=== PATIENT | male | born 1955 | race Caucasian/White ===

== ENCOUNTER 2018-06-01 11:41 | Emergency (ER) | payer BC, MEDICARE ==
[2018-06-01 11:50] VITALS: PULSE 55; RESP 18
--- NOTE | 2018-06-01 12:32 | ED ---
General Adult HPI - General Chief complaint: Recheck/Abnormal Lab/Rx Stated complaint: Post Surgical Complication Time Seen by Provider: 06/01/18 12:07 Source: patient Mode of arrival: ambulatory Limitations: no limitations - Related Data Home Medications Medication Instructions Recorded Confirmed Cholecalciferol [Vitamin D3] 1,000 unit PO DAILY 05/02/15 06/01/18 Citalopram Hydrobromide [CeleXA] 10 mg PO DAILY 05/02/15 06/01/18 Lisinopril [Zestril] 20 mg PO DAILY 05/02/15 06/01/18 Aspirin EC [Ecotrin Low Dose] 81 mg PO HS 06/01/18 06/01/18 Cyanocobalamin (Vitamin B-12) 1,000 mcg PO DAILY 06/01/18 06/01/18 [Vitamin B-12] Insulin Aspart [NovoLOG 20 unit SQ AC-TID 06/01/18 06/01/18 (formulary)] Insulin Aspart [NovoLOG See Protocol SQ AC-TID 06/01/18 06/01/18 (formulary)] Insulin Glargine,Hum.rec.anlog 54 units SQ HS 06/01/18 06/01/18 [Toujeo Solostar] Krill/Barnum-3/Dha/Epa/Lipids 1 cap PO DAILY 06/01/18 06/01/18 [Krill Oil 350 mg Softgel] Primidone [Mysoline] 25 mg PO BID 06/01/18 06/01/18 Previous Rx's Medication Instructions Recorded Atorvastatin Calcium [Lipitor] 10 mg PO DAILY #30 tab 05/07/15 Clopidogrel [Plavix] 75 mg PO DAILY #30 tab 05/07/15 Allergies Allergy/AdvReac Type Severity Reaction Status Date / Time cefepime Allergy Rash/Hives Verified 06/01/18 12:16 POLYGLYCOL Allergy Rash/Hives Uncoded 05/02/15 20:02 Review of Systems ROS Statement: Those systems with pertinent positive or pertinent negative responses have been documented in the HPI. ROS Other: All systems not noted in ROS Statement are negative. 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 History of Any Multi-Drug Resistant Organisms: MRSA Date of last positivie culture/infection: 2013 MDRO Source:: LEFT FOOT Past Surgical History: Pacemaker Additional Past Surgical History / Comment(s): LEFT FOOT reconstruction, colonoscopy Past Anesthesia/Blood Transfusion Reactions: No Reported Reaction Past Psychological History: Depression Smoking Status: Never smoker Past Alcohol Use History: Rare Past Drug Use History: None Reported - Past Family History Father Family Medical History: Hypertension, Myocardial Infarction ([place]) Mother Family Medical History: Cancer, Myocardial Infarction ([place]) Additional Family Medical History / Comment(s): Breast CA, MRSA Sister(s) Additional Family Medical History / Comment(s): heart valve transplant General Exam Limitations: no limitations Course Vital Signs 06/01/18 11:47 Temperature 98.0 F Pulse Rate 55 L Respiratory 18 Rate Blood Pressure 135/74 O2 Sat by Pulse 95 Oximetry Medical Decision Making - Medical Decision Making Dictation was produced using [employer] dictation software. please excuse any grammatical, word or spelling errors. Chief Complaint: 63-year-old male with recent pacemaker placement presents with bleeding from surgical site. History of Present Illness: Patient 63-year-old male presents with bleeding from the surgical site. Patient states that patient was placed [address] Branch. Patient states that after the procedure he was told that there was a difficult time placing the pacemaker. He had a large hematoma postoperatively that they're watching. Patient was seen by curriculum development specialist who placed the pacemaker therefore days ago who recommended just watching the wound. This morning patient awoke and there was a small bleeding coming from the inferior portion of the wound. Other complaints at this time. It has any worsening pain. No constitutional symptoms. The ROS documented in this emergency department record has been reviewed and confirmed by me. Those systems with pertinent positive or negative responses have been documented in the HPI. All other systems are other negative and/or noncontributory. PHYSICAL EXAM: General Impression: Alert and oriented x3, not in acute distress HEENT: Normocephalic atraumatic, extra-ocular movements intact, pupils equal and reactive to light bilaterally, mucous membranes moist. Cardiovascular: Heart regular rate and rhythm, S1&S2 audible, no murmurs, rubs or gallops Chest: Lungs clear to auscultation bilaterally, no rhonchi, no wheeze, no rales Abdomen: Bowel sounds present, abdomen soft, non-tender, non-distended, no organomegaly, small ecchymoses and hematoma over the left upper chest region overlying the pacemaker site. Punctate area of dark blood from the inferior portion of the wound but the size of a lead pencil tip Musculoskeletal: Pulses present and equal in all extremities, no peripheral edema Motor: Power 5/5 bilaterally, no focal deficits noted Neurological: CN II-XII grossly intact, no focal motor or sensory deficits noted Skin: Intact with no visualized rashes Psych: Normal affect and mood ED course: 63-year-old male status post pacemaker presents with mild bleeding from the inferior portion of the surgical site. It appears that the bleeding is from placed previous blood clot. Rest physical examination is benign. There is small punctate area of oozing dark blood. No signs of infection. Discussed patient case with Dr. Wang who recommends placing dressing and following up with Dr. Branch on . She understandable and agreeable to plan. Once I was cleaned and dressing was placed. Patient given small amount of dressing for dressing changes. Told to come back with any constitutional symptoms, worsening pain or bright red blood. Disposition Clinical Impression: Bleeding Disposition: HOME SELF-CARE Condition: Good Instructions: Postoperative Bleeding (ED) Additional Instructions: Follow up with Dr. Branch on Is patient prescribed a controlled substance at d/c from ED?: No Referrals: Sean Sharif MD [Primary Care Provider] - 1-2 days Time of Disposition: 12:31
[2018-06-01 12:50] VITALS: BP 132/82; TEMP 98.2
== END 2018-06-01 12:49 | disposition home or self-care (01) ==
LOC: EC 11:41
DX: I97.618 Postprocedural hemorrhage of a circulatory system organ or structure following other circulatory system procedure (principal); E11.9 Type 2 diabetes mellitus without complications; I10 Essential (primary) hypertension; F32.9 Major depressive disorder, single episode, unspecified; Z79.82 Long term (current) use of aspirin; Z79.4 Long term (current) use of insulin; Z79.899 Other long term (current) drug therapy; Z86.73 Personal history of transient ischemic attack (TIA), and cerebral infarction without residual deficits; Z95.0 Presence of cardiac pacemaker; Z88.1 Allergy status to other antibiotic agents; Z88.8 Allergy status to other drugs, medicaments and biological substances
CPT/HCPCS: 99283

== ENCOUNTER 2019-02-23 07:31 | Day surgery (SDC) | payer MEDICARE ==
[2019-02-21 13:13] VITALS: BMI 33.7
[~2019-02-23 07:31] MED LIST: LACTATED RINGERS 1,000 ML IV SCH
[2019-02-23 07:51] VITALS: TEMP 98.2
[2019-02-23 07:53] LABS: Glucose,Whole Blood 148 mg/dL (75-99)
[2019-02-23] MEDS ORDERED: MIDAZOLAM 2 MG/2 ML VIAL ONE (08:08)
[2019-02-23] MEDS ORDERED: LIDOCAINE 1% INJ 10MG/ML (20 ML MDV) ONE (08:08)
[2019-02-23] MEDS ORDERED: PROPOFOL 10 MG/ML 20 ML VIAL IV ONE (08:08)
[2019-02-23] MEDS ORDERED: fentaNYL (PF) 50 MCG/ML 2 ML AMP ONE (08:08)
--- NOTE | 2019-02-23 08:11 | P.GSHP ---
History of Present Illness H&P Date: 02/23/19 CHIEF COMPLAINT: GERD and colon screen HISTORY OF PRESENT ILLNESS: The patient is a 64-year-old male who presents with gastroesophageal reflux disease and need for colon screen. Upper and lower endoscopy were offered for further evaluation and management. PAST MEDICAL HISTORY: Please see list. PAST SURGICAL HISTORY: Please see list. MEDICATIONS: Please see list. ALLERGIES: Please see list. SOCIAL HISTORY: No illicit drug use FAMILY HISTORY: No reports of Crohn disease or ulcerative colitis. REVIEW OF ORGAN SYSTEMS: CONSTITUTIONAL: No reports of fevers or chills. GI: Denies any blood in stools or constipation. PHYSICAL EXAM: VITAL SIGNS: Stable GENERAL: Well-developed pleasant in no acute distress. HEENT: No scleral icterus. Extraocular movements grossly intact. Moist buccal mucosa. NECK: Supple without lymphadenopathy. CHEST: Unlabored respirations. Equal bilateral excursions. CARDIOVASCULAR: Regular rate and rhythm. Distal 2+ pulses. ABDOMEN: Soft, nondistended. MUSCULOSKELETAL: No clubbing, cyanosis, or edema. ASSESSMENT: 1. Gastroesophageal reflux disease 2. Colon screen. PLAN: 1. 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 Multiple TIAs from 7868-3986, pt states have about 13 TIAs have occured in that time. Tremors of head. Pacemaker. Loop Recorder Monitor. Some dysphagia for few years. Uses CPAP. History of Any Multi-Drug Resistant Organisms: MRSA Date of last positivie culture/infection: 2013 MDRO Source:: LEFT FOOT Past Surgical History: Pacemaker Additional Past Surgical History / Comment(s): LEFT FOOT Reconstruction, Colonoscopy. Exc CA eyelid. Loop Recorder. Past Anesthesia/Blood Transfusion Reactions: No Reported Reaction Type of Cardiac Device: Permanent Pacemaker Device Placement Date:: 05/2018 Smoking Status: Never smoker - Past Family History Father Family Medical History: Hypertension, Myocardial Infarction ([place]) Mother Family Medical History: Cancer, Myocardial Infarction ([place]) Additional Family Medical History / Comment(s): Breast CA, MRSA Sister(s) Additional Family Medical History / Comment(s): heart valve transplant Medications and Allergies Home Medications Medication Instructions Recorded Confirmed Type Cholecalciferol [Vitamin D3 (25 1,000 unit PO DAILY 05/02/15 02/23/19 History Mcg = 1000 Iu)] Citalopram Hydrobromide [CeleXA] 10 mg PO DAILY 05/02/15 02/23/19 History Lisinopril [Zestril] 20 mg PO DAILY 05/02/15 02/23/19 History Clopidogrel [Plavix] 75 mg PO DAILY #30 tab 05/07/15 02/23/19 Rx Cyanocobalamin (Vitamin B-12) 1,000 mcg PO DAILY 06/01/18 02/23/19 History [Vitamin B-12] INSULIN ASPART (NovoLOG) [NovoLOG 30 unit SQ AC-TID 06/01/18 02/23/19 History (formulary)] Primidone [Mysoline] 50 mg PO DAILY 06/01/18 02/23/19 History Atorvastatin Calcium [Lipitor] 40 mg PO DAILY 02/21/19 02/23/19 History Insulin Glargine,Hum.rec.anlog 45 unit SQ HS 02/21/19 02/23/19 History [Toujeo Solostar] metFORMIN HCL [Glucophage] 1,000 mg PO BID 02/21/19 02/23/19 History Allergies Allergy/AdvReac Type Severity Reaction Status Date / Time cefepime Allergy Rash/Hives Verified 02/21/19 12:49 POLYGLYCOL Allergy Rash/Hives Uncoded 02/21/19 12:49 Surgical - Exam Vital Signs Temp Pulse Resp BP Pulse Ox 98.2 F 86 18 143/86 94 L 02/23/19 07:45 02/23/19 07:45 02/23/19 07:45 02/23/19 07:45 02/23/19 07:45 Results - Labs Abnormal Lab Results - Last 24 Hours (Table) 02/23/19 Range/Units 07:49 POC Glucose (mg/dL) 148 H (75-99) mg/dL
--- NOTE | 2019-02-23 08:20 | P.PCN ---
Date of Procedure: 02/23/19 Description of Procedure: PREOPERATIVE DIAGNOSIS: Gastroesophageal reflux disease. POSTOPERATIVE DIAGNOSIS: Gastritis. Gastroesophageal reflux disease. Diaphragmatic hiatal hernia OPERATION: Esophagogastroduodenoscopy with biopsies along antrum. SURGEON: Amy Tineo MD ANESTHESIA: MAC. INDICATIONS: The patient is a 64-year-old male who presents with a history of reflux disease. Benefits and risks of the procedure were described. Informed consent was obtained. DESCRIPTION: The patient was brought into the endoscopy suite and laid in the left lateral decubitus position. An Olympus gastroscope was passed along the posterior oropharynx down to the distal esophagus where the squamocolumnar junction was encountered at 40 cm from the incisors. The stomach was entered and no bile reflux was found. Additional findings are listed below. Biopsies with cold forceps were obtained of the antrum. The first through third portion of the duodenum was examined and unremarkable. Retroflexion of the scope confirmed Hill grade 2 lower esophageal valve. The squamocolumnar junction demonstrated LA grade B erosive esophagitis. The stomach was desufflated. The patient tolerated the procedure well. FINDINGS: Squamocolumnar junction 40 cm from the incisors. Diaphragmatic hiatus at 41 cm. Hiatal hernia, 1 cm Hill grade 2 lower esophageal valve. LA grade B erosive esophagitis. No active duodenitis. Chronic gastritis RECOMMENDATIONS: Upper endoscopy as needed.
--- NOTE | 2019-02-23 08:37 | P.PCN ---
Date of Procedure: 02/23/19 Description of Procedure: PREOPERATIVE DIAGNOSIS: History of polyps Colonoscopy screening POSTOPERATIVE DIAGNOSIS: Colonoscopy screening Personal history of colon polyps. Multiple tubular adenomas throughout the colon. External hemorrhoids, grade 2 Internal hemorrhoids, grade 2 Anal fissure Diverticulosis. OPERATION: Colonoscopy to the ileocecal valve and appendiceal orifice. Colonoscopy with multiple hot snare polypectomies Colonoscopy with cold forceps biopsy. SURGEON: Amy Tineo MD. ANESTHESIA: MAC. INDICATIONS: The patient is a 64-year-old male who presents for colonoscopy screening. Last colonoscopy 5 years ago Benefits and risks were described and informed consent was obtained. DESCRIPTION OF PROCEDURE: The patient had undergone Suprep. He had been brought into the operating room and laid in the left lateral decubitus position. After adequate intravenous sedation, the rectum was examined with 2% lidocaine jelly. The prostate was unremarkable External hemorrhoids were encountered. The rectal tone was within normal limits. No lesions were palpated in the rectal vault. An Olympus colonoscope was advanced until the ileocecal valve and appendiceal orifice were clearly viewed. The prep was excellent. The scope was removed with visualization of each mucosal fold. Scattered diverticulosis was encountered. Multiple colonic polyps were found and cold forcep biopsy or snare polypectomy. No evidence of focal colitis was found. Retroflexion of the scope demonstrated grade 1 internal hemorrhoids without active bleeding or inflammation. Anal fissure identified. The colon was desufflated. The patient had tolerated the procedure well. Withdrawal time was over 6 minutes. FINDINGS: Aronchick preparation quality scale 1(1-5) Internal hemorrhoids, grade 2 External hemorrhoids, grade 2. No arteriovenous malformations. Scattered sigmoid diverticulosis Anal fissure Removal of 3 polyps: - Snare polypectomy 5 mm flat villous adenoma polyp, hepatic flexure - Snare polypectomy 6 mm flat villous adenoma polyp, ileocecal valve - Cold forceps biopsy at 20 cm from the anal verge, 4 mm polyp. No focal colitis. RECOMMENDATIONS: Given severity of tubular adenomas, recommend repeat colonoscopy 3 year, 2021 Plan - Discharge Summary Discharge Rx Participant: No New Discharge Prescriptions: New Omeprazole 40 mg PO DAILY #14 capsule.dr Pugh Action Lisinopril [Zestril] 20 mg PO DAILY Citalopram Hydrobromide [CeleXA] 10 mg PO DAILY Cholecalciferol [Vitamin D3 (25 Mcg = 1000 Iu)] 1,000 unit PO DAILY Clopidogrel [Plavix] 75 mg PO DAILY #30 tab INSULIN ASPART (NovoLOG) [NovoLOG (formulary)] 30 unit SQ AC-TID Cyanocobalamin (Vitamin B-12) [Vitamin B-12] 1,000 mcg PO DAILY Primidone [Mysoline] 50 mg PO DAILY Atorvastatin Calcium [Lipitor] 40 mg PO DAILY metFORMIN HCL [Glucophage] 1,000 mg PO BID Insulin Glargine,Hum.rec.anlog [[facility]] 45 unit SQ HS Discharge Medication List Cholecalciferol [Vitamin D3 (25 Mcg = 1000 Iu)] 1,000 unit PO DAILY 05/02/15 [History] Citalopram Hydrobromide [CeleXA] 10 mg PO DAILY 05/02/15 [History] Lisinopril [Zestril] 20 mg PO DAILY 05/02/15 [History] Clopidogrel [Plavix] 75 mg PO DAILY #30 tab 05/07/15 [Rx] Cyanocobalamin (Vitamin B-12) [Vitamin B-12] 1,000 mcg PO DAILY 06/01/18 [History] INSULIN ASPART (NovoLOG) [NovoLOG (formulary)] 30 unit SQ AC-TID 06/01/18 [History] Primidone [Mysoline] 50 mg PO DAILY 06/01/18 [History] Atorvastatin Calcium [Lipitor] 40 mg PO DAILY 02/21/19 [History] Insulin Glargine,Hum.rec.anlog [[facility]] 45 unit SQ HS 02/21/19 [History ] metFORMIN HCL [Glucophage] 1,000 mg PO BID 02/21/19 [History] Omeprazole 40 mg PO DAILY #14 capsule. 02/23/19 [Rx] Follow up Appointment(s)/Referral(s): Amy Tineo MD [STAFF PHYSICIAN] - 03/08/19 Patient Instructions/Handouts: Colorectal Polyps (GEN), Diverticulosis Diet (GEN), Diverticulosis (DC), Hemorrhoids (DC), Anal Fissure (DC) Activity/Diet/Wound Care/Special Instructions: Repeat colonoscopy 3 years, 2021 Discharge Disposition: HOME SELF-CARE
[2019-02-23 08:39] VITALS: PULSE 55
[2019-02-23 08:54] VITALS: BP 128/79; RESP 16
== END 2019-02-23 09:22 | disposition home or self-care (01) ==
LOC: ORWHC2ENDO 07:31
PROVIDERS: ATTEND Surgery Plastic and Reconstructive Surgery
DX: Z12.11 Encounter for screening for malignant neoplasm of colon (principal); K21.0 Gastro-esophageal reflux disease with esophagitis; D12.3 Benign neoplasm of transverse colon; D12.0 Benign neoplasm of cecum; D12.5 Benign neoplasm of sigmoid colon; K29.50 Unspecified chronic gastritis without bleeding; K44.9 Diaphragmatic hernia without obstruction or gangrene; K64.1 Second degree hemorrhoids; K64.0 First degree hemorrhoids; K64.4 Residual hemorrhoidal skin tags; K60.2 Anal fissure, unspecified; I10 Essential (primary) hypertension; E11.65 Type 2 diabetes mellitus with hyperglycemia; K57.30 Diverticulosis of large intestine without perforation or abscess without bleeding; Z79.02 Long term (current) use of antithrombotics/antiplatelets; Z79.4 Long term (current) use of insulin; Z79.899 Other long term (current) drug therapy; Z86.73 Personal history of transient ischemic attack (TIA), and cerebral infarction without residual deficits; Z85.828 Personal history of other malignant neoplasm of skin; Z95.0 Presence of cardiac pacemaker; Z86.14 Personal history of Methicillin resistant Staphylococcus aureus infection; Z98.890 Other specified postprocedural states; Z80.3 Family history of malignant neoplasm of breast; Z88.1 Allergy status to other antibiotic agents; Z88.8 Allergy status to other drugs, medicaments and biological substances; Z95.818 Presence of other cardiac implants and grafts
CPT/HCPCS: 88305; 45380; 45385; 43239; J2250; J2001; J3010; J2704

== ENCOUNTER → 2019-11-15 | Outpatient (CLI) | payer MEDICARE ==
--- NOTE | 2019-11-15 11:54 | XR ---
EXAMINATION TYPE: XR foot complete LT DATE OF EXAM: 11/15/2019 COMPARISON: 03/02/2012 HISTORY: Pain TECHNIQUE: Three views are submitted. FINDINGS: The bony structures are demineralized. Evaluation of the distal toes is limited by the patient's inab ility to straighten the toes during film exposure. Multiple metallic screws noted at the talocalcanea l joint. There is total obliteration of the joint space between the talus and calcaneus. No acute fra cture or dislocation is seen. No abnormal periosteal reaction is noted. Tarsometatarsal joints are pr eserved. Arthropathy of the first MTP. Distal phalanges are difficult to assess due to positioning. C hronic deformity along the plantar surface of the calcaneus with hypertrophic changes noted. Soft tis rodger calcification in the region of the Achilles again noted. Pes planus deformity noted. IMPRESSION: 1. Postsurgical change with diffuse osteopenia and arthropathy. No erosive changes..
== END | disposition home or self-care (01) ==
LOC: RADXRMAIN 10:38
PROVIDERS: ATTEND Family Medicine
DX: M85.872 Other specified disorders of bone density and structure, left ankle and foot (principal); M12.872 Other specific arthropathies, not elsewhere classified, left ankle and foot; Z98.890 Other specified postprocedural states

== ENCOUNTER 2022-01-01 09:56 | Observation (INO) | payer MEDICARE ==
[2022-01-01 10:18] LABS: Glucose,Whole Blood 197 mg/dL (70-110)
--- NOTE | 2022-01-01 10:20 | ED ---
Neuro HPI - General Source: patient Mode of arrival: wheelchair Limitations: no limitations - History of Present Illness Is the patient presenting with stroke symptoms?: Yes Last Known Well Date: 12/31/21 Last Known Well Time: 12:00 <Aubrey Guadalupe - Last Filed: 01/01/22 13:52> <Bimal Echevarria - Last Filed: 01/01/22 14:08> - General Chief Complaint: Neuro Symptoms/Deficit Stated Complaint: slurred speech Time Seen by Provider: 01/01/22 10:04 - History of Present Illness Initial Comments: Patient is a 66-year-old male presenting with chief complaint of slurred speech. Patient states that symptoms began about noon yesterday. Patient also admits to some difficulty with right hand coordination and difficulty swallowing. Patient has self diagnosed TIAs in the past. He has a history of Parkinson's, diabetes, hypertension. He denies any headache, nausea, vomiting, chest pain, shortness of breath, fever, chills, vision or hearing changes, neck pain or stiffness, recent trauma, numbness, tingling, palpitations, dysuria, hematuria, diarrhea, hematochezia, melena, URI-like symptoms. (Aubrey Guadalupe) - Related Data Home Medications: Home Medications Medication Instructions Recorded Confirmed Citalopram Hydrobromide [CeleXA] 10 mg PO DAILY 05/02/15 01/01/22 Cyanocobalamin (Vitamin B-12) 1,000 mcg PO DAILY 06/01/18 01/01/22 [Vitamin B-12] Atorvastatin Calcium [Lipitor] 40 mg PO DAILY 02/21/19 01/01/22 Insulin Glargine,Hum.rec.anlog 54 unit SQ HS 02/21/19 01/01/22 [Toujeo Solostar] metFORMIN HCL [Glucophage] 1,000 mg PO BID 02/21/19 01/01/22 Cholecalciferol [Vitamin D3 (25 25 mcg PO DAILY 01/01/22 01/01/22 Mcg = 1000 Iu)] Insulin Aspart [NovoLOG Flexpen] 30 units SQ AC-TID 01/01/22 01/01/22 Insulin Aspart [NovoLOG Flexpen] See Protocol SQ AC-TID 01/01/22 01/01/22 Metoprolol Tartrate [Lopressor] 50 mg PO DAILY 01/01/22 01/01/22 Pioglitazone [Actos] 15 mg PO DAILY 01/01/22 01/01/22 lisinopriL 40 mg PO DAILY 01/01/22 01/01/22 Previous Rx's Medication Instructions Recorded Clopidogrel [Plavix] 75 mg PO DAILY #30 tab 05/07/15 Allergies/Adverse Reactions: Allergies Allergy/AdvReac Type Severity Reaction Status Date / Time cefepime Allergy Rash/Hives Verified 01/01/22 10:02 POLYGLYCOL Allergy Rash/Hives Uncoded 01/01/22 10:02 Review of Systems ROS Other: All systems not noted in ROS Statement are negative. <Aubrey Guadalupe - Last Filed: 01/01/22 13:52> ROS Other: All systems not noted in ROS Statement are negative. <Bimal Echevarria - Last Filed: 01/01/22 14:08> ROS Statement: Those systems with pertinent positive or pertinent negative responses have been documented in the HPI. General Exam Limitations: no limitations General appearance: alert, in no apparent distress Head exam: Present: atraumatic, normocephalic, normal inspection Eye exam: Present: normal appearance, PERRL, EOMI. Absent: scleral icterus, periorbital swelling Neck exam: Present: normal inspection Respiratory exam: Present: normal lung sounds bilaterally. Absent: respiratory distress, wheezes, rales, rhonchi, stridor Cardiovascular Exam: Present: regular rate, normal rhythm, normal heart sounds. Absent: systolic murmur, diastolic murmur, rubs, gallop, clicks Extremities exam: Present: normal inspection, full ROM Neurological exam: Present: alert, oriented X3, CN II-XII intact Expanded Patient oriented to: Present: person, place, time Speech: Present: expressive aphasia (slurred speech) Cranial nerves: EOM's Intact: Normal, Tongue Deviation: Normal, Facial Sensation: Normal Sensory exam: Upper Extremity Light Touch: Normal, Lower Extremity Light Touch: Normal Motor strength exam: RUE: 5, LUE: 5, RLE: 5, LLE: 5 Eye Response: (4) open spontaneously Motor Response: (6) obeys commands Verbal Response: (5) oriented (slurred speech) [place] Total: 15 Psychiatric exam: Present: normal affect, normal mood Skin exam: Present: warm, dry, intact, normal color. Absent: rash <Guadalupe,Malmaia - Last Filed: 01/01/22 13:52> Stroke MDM - Lab Data Result diagrams: 01/01/22 10:19 01/01/22 10:19 <Johnnie Guadalupemaia - Last Filed: 01/01/22 13:52> - Lab Data Result diagrams: 01/01/22 10:19 01/01/22 10:19 - EKG Data -: EKG Interpreted by [facility] EKG shows normal: sinus rhythm (Pacemaker rhythm of 49 FL interval 195 QRS duration 114 QT since QTC 444/416 left exodeviation poor R-wave progression) <Bimal Echevarria - Last Filed: 01/01/22 14:08> - Lab Data Lab Results 01/01/22 01/01/22 01/01/22 Range/Units 10:18 10:19 10:19 WBC 5.9 (3.8-10.6) k/uL RBC 5.14 (4.30-5.90) m/uL Hgb 16.3 (13.0-17.5) gm/dL Hct 47.8 (39.0-53.0) % MCV 93.0 (80.0-100.0) fL MCH 31.8 (25.0-35.0) pg MCHC 34.2 (31.0-37.0) g/dL RDW 13.3 (11.5-15.5) % Plt Count 210 (150-450) k/uL MPV 8.8 Neutrophils % 61 % Lymphocytes % 26 % Monocytes % 7 % Eosinophils % 3 % Basophils % 1 % Neutrophils # 3.6 (1.3-7.7) k/uL Lymphocytes # 1.5 (1.0-4.8) k/uL Monocytes # 0.4 (0-1.0) k/uL Eosinophils # 0.2 (0-0.7) k/uL Basophils # 0.0 (0-0.2) k/uL PT 11.2 (9.0-12.0) sec INR 1.0 (<1.2) APTT 28.3 (22.0-30.0) sec Sodium (137-145) mmol/L Potassium (3.5-5.1) mmol/L Chloride (98-107) mmol/L Carbon Dioxide (22-30) mmol/L Anion Gap mmol/L BUN (9-20) mg/dL Creatinine (0.66-1.25) mg/dL Est GFR (CKD-EPI)AfAm (>60 ml/min/1.73 sqM) Est GFR (CKD-EPI)NonAf (>60 ml/min/1.73 sqM) Glucose (74-99) mg/dL POC Glucose (mg/dL) 197 H (70-110) mg/dL POC Glu Active Directory Specialist ID Elma Spivey Calcium (8.4-10.2) mg/dL Total Bilirubin (0.2-1.3) mg/dL AST (17-59) U/L ALT (4-49) U/L Alkaline Phosphatase (38-126) U/L Troponin I (0.000-0.034) ng/mL Total Protein (6.3-8.2) g/dL Albumin (3.5-5.0) g/dL 01/01/22 01/01/22 Range/Units 10:19 10:19 WBC (3.8-10.6) k/uL RBC (4.30-5.90) m/uL Hgb (13.0-17.5) gm/dL Hct (39.0-53.0) % MCV (80.0-100.0) fL MCH (25.0-35.0) pg MCHC (31.0-37.0) g/dL RDW (11.5-15.5) % Plt Count (150-450) k/uL MPV Neutrophils % % Lymphocytes % % Monocytes % % Eosinophils % % Basophils % % Neutrophils # (1.3-7.7) k/uL Lymphocytes # (1.0-4.8) k/uL Monocytes # (0-1.0) k/uL Eosinophils # (0-0.7) k/uL Basophils # (0-0.2) k/uL PT (9.0-12.0) sec INR (<1.2) APTT (22.0-30.0) sec Sodium 137 (137-145) mmol/L Potassium 4.7 (3.5-5.1) mmol/L Chloride 102 (98-107) mmol/L Carbon Dioxide 26 (22-30) mmol/L Anion Gap 9 mmol/L BUN 19 (9-20) mg/dL Creatinine 0.93 (0.66-1.25) mg/dL Est GFR (CKD-EPI)AfAm >90 (>60 ml/min/1.73 sqM) Est GFR (CKD-EPI)NonAf 85 (>60 ml/min/1.73 sqM) Glucose 206 H (74-99) mg/dL POC Glucose (mg/dL) (70-110) mg/dL POC Glu Active Directory Specialist ID Calcium 9.4 (8.4-10.2) mg/dL Total Bilirubin 0.7 (0.2-1.3) mg/dL AST 33 (17-59) U/L ALT 32 (4-49) U/L Alkaline Phosphatase 91 (38-126) U/L Troponin I <0.012 (0.000-0.034) ng/mL Total Protein 8.0 (6.3-8.2) g/dL Albumin 4.9 (3.5-5.0) g/dL - Medical Decision Making Patient is a 66-year-old male with history of diabetes, hypertension, and tremor presenting with chief complaint of slurred speech. Patient states around noon yesterday he began experiencing symptoms, as well as some difficulty with right hand coordination and difficulty swallowing. Patient has had episodes like this several times in the past, he states that it takes a few days for symptoms to improve. On examination there is slurred speech, he has full strength and range of motion of all extremities, extraocular motions are intact, facial movements are intact. Code stroke was called. CT of the brain without contrast shows no acute intracranial process. CT angiography of the head and neck shows no evidence of dissection or any significant stenosis of the carotid bifurcations, no evidence of high-grade stenosis or intracranial aneurysm. Lab work is grossly unremarkable. Patient's ABCD2 score is 6, he'll stay for observation a nd neuro consultation. 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 History of Any Multi-Drug Resistant Organisms: MRSA Date of last positivie culture/infection: 2014 MDRO Source:: LEFT FOOT Past Surgical History: Pacemaker Additional Past Surgical History / Comment(s): LEFT FOOT reconstruction, colonoscopy Past Anesthesia/Blood Transfusion Reactions: No Reported Reaction Past Psychological History: Depression Smoking Status: Never smoker Past Alcohol Use History: None Reported Past Drug Use History: None Reported - Past Family History Father Family Medical History: Hypertension, Myocardial Infarction ([place]) Mother Family Medical History: Cancer, Myocardial Infarction ([place]) Additional Family Medical History / Comment(s): Breast CA, MRSA Sister(s) Additional Family Medical History / Comment(s): heart valve transplant <Aubrey Guadalupe - Last Filed: 01/01/22 13:52> Course Vital Signs 01/01/22 01/01/22 01/01/22 09:59 10:12 10:20 Temperature 98.1 F Pulse Rate 57 L 56 L 54 L Respiratory 16 18 20 Rate Blood Pressure 153/74 141/73 162/82 O2 Sat by Pulse 97 98 Oximetry 01/01/22 01/01/22 01/01/22 10:30 10:50 11:00 Temperature Pulse Rate 52 L 50 L 51 L Respiratory 18 16 18 Rate Blood Pressure 162/82 145/82 145/82 O2 Sat by Pulse 96 95 Oximetry Disposition Time of Disposition: 13:44 Decision to Admit Reason: Admit from EC Decision Date: 01/01/22 Decision Time: 13:44 <Aubrey Guadalupe - Last Filed: 01/01/22 13:52> <Bimal Echevarria - Last Filed: 01/01/22 14:08> Clinical Impression: TIA (transient ischemic attack) Disposition: ADMITTED IP TO THIS [facility] Condition: Fair Referrals: Sean Sharif MD [Primary Care Provider] - 1-2 days
[2022-01-01 10:37] LABS: Basophils % (A) 1 %; Eosinophils # (A) 0.2 k/uL (0-0.7); Eosinophils % (A) 3 %; HCT 47.8 % (39.0-53.0); HGB 16.3 gm/dL (13.0-17.5); Lymphocytes # (A) 1.5 k/uL (1.0-4.8); Lymphocytes % (A) 26 %; MCH 31.8 pg (25.0-35.0); MCHC 34.2 g/dL (31.0-37.0); Mean Platelet Volume 8.8; Monocytes # (A) 0.4 k/uL (0-1.0); Monocytes % (A) 7 %; Neutrophils # (A) 3.6 k/uL (1.3-7.7); Neutrophils % (A) 61 %; Platelet Count 210 k/uL (150-450); RBC 5.14 m/uL (4.30-5.90); RDW 13.3 % (11.5-15.5); WBC 5.9 k/uL (3.8-10.6)
--- NOTE | 2022-01-01 10:47 | CT ---
EXAMINATION TYPE: CT brain wo con CT DLP: 1206.6 mGycm, Automated exposure control for dose reduction was used. DATE OF EXAM: 01/01/2022 10:27 AM COMPARISON: CT brain 05/02/2015. CLINICAL INDICATION:Male, 66 years old with history of Neuro deficit, acute, stroke suspected, Neuro deficits, code stroke. Prior in PACS TECHNIQUE: Brain: Multiple axial CT images of the brain were obtained without IV contrast. Coronal and sagittal reformats reviewed. FINDINGS: Brain: Extra-axial spaces: No abnormal extra-axial fluid collections. Ventricular system: Within normal limits Cerebral parenchyma: No acute intraparenchymal hemorrhage or mass effect. The roper-white junction is well differentiated. Cerebellum: Unremarkable. Mass effect: No evidence of midline shift. Intracranial vasculature: unremarkable Soft tissues: Normal. Calvarium/osseous structures: No depressed skull fracture. Paranasal sinuses and mastoid air cells: Mild mucosal thickening of the ethmoid and right maxillary s inuses. Visualized orbits: Bilateral aphakia IMPRESSION: No acute intracranial process. No significant change from prior examination.
--- NOTE | 2022-01-01 10:49 | XR ---
EXAMINATION TYPE: XR chest 2V DATE OF EXAM: 01/01/2022 10:41 AM COMPARISON: Chest radiographs 05/02/2015. TECHNIQUE: XR chest 2V Frontal and lateral views of the chest. CLINICAL INDICATION:Male, 66 years old with history of altered mental status; FINDINGS: Lungs/Pleura: There is no evidence of pleural effusion, focal consolidation, or pneumothorax. Similar elevation of the right hemidiaphragm. Pulmonary vascularity: Unremarkable. Heart/mediastinum: Cardiomediastinal silhouette is unremarkable. Two lead cardiac conduction device overlying the left hemithorax with lead tips projecting over the right ventricle and right atrium. Le ft anterior chest wall loop recorder. Musculoskeletal: Multiple level degenerative disc disease changes seen throughout the spine. No acute osseous adenopathy IMPRESSION: No acute cardiopulmonary disease/process.
[2022-01-01 10:55] LABS: ALT 32 U/L (4-49); AST 33 U/L (17-59); African American GFR (CKD) >90 (>60 ml/min/1.73 sqM); Albumin 4.9 g/dL (3.5-5.0); Alkaline Phosphatase 91 U/L (38-126); Anion Gap 9 mmol/L; Blood Urea Nitrogen 19 mg/dL (9-20); Calcium 9.4 mg/dL (8.4-10.2); Carbon Dioxide 26 mmol/L (22-30); Chloride 102 mmol/L (98-107); Glucose 206 mg/dL (74-99); Non-African American GFR(CKD) 85 (>60 ml/min/1.73 sqM); Partial Thromboplastin Time 28.3 sec (22.0-30.0); Potassium 4.7 mmol/L (3.5-5.1); Prothrombin Time 11.2 sec (9.0-12.0); Sodium 137 mmol/L (137-145); Total Bilirubin 0.7 mg/dL (0.2-1.3)
--- NOTE | 2022-01-01 12:05 | CT ---
EXAMINATION TYPE: CT angio head neck CT DLP: 998.3 mGycm, Automated exposure control for dose reduction was used. DATE OF EXAM: 01/01/2022 11:47 AM COMPARISON: CT brain 01/01/2022. CLINICAL INDICATION:Male, 66 years old with history of neuro deficit, acute, stroke suspected; PHH, N euro deficits TECHNIQUE: Axially acquired helical CT angiogram of the head and neck was obtained with contrast util izing 75 cc of Isovue-370 administered intravenously. Axial images are supplemented with 3D reconstru ctions which were post-processed at an independent workstation. NASCET criteria used. FINDINGS: CTA HEAD: No evidence of acute intracranial hemorrhage, mass effect, or midline shift. The ventricles, sulci, a nd cisterns are unremarkable. The visualized portions of the internal carotid arteries, middle cerebral arteries, anterior cerebral arteries, and posterior cerebral arteries are patent. The basilar and vertebral arteries are patent. CTA NECK: Right Carotid System: The common carotid artery and external carotid artery are patent. The carotid bifurcation demonstrate s no evidence of hemodynamically significant stenosis. The remaining portions of the internal carotid artery demonstrate normal size without significant narrowing. Left Carotid System: The common carotid artery and external carotid artery are patent. The carotid bifurcation demonstrate s no evidence of hemodynamically significant stenosis. The remaining portions of the internal carotid artery demonstrate normal size without significant narrowing. Vertebral arteries are patent without evidence hemodynamically significant stenosis. There is a three-vessel aortic arch. The origins of the great vessels are patent. No evidence of hemo dynamically significant stenosis. Bibasilar dependent atelectasis. Left chest wall cardiac pacemaking device. Multilevel degenerative changes of the cervical spine. IMPRESSION: 1. No evidence of dissection of the cervical internal carotid arteries or vertebral arteries or any e vidence of significant stenosis at the carotid bifurcations. 2. No evidence of high-grade stenosis or intracranial aneurysm.
[2022-01-01 15:46] LABS: Glucose,Whole Blood 176 mg/dL (70-110)
[2022-01-01] MEDS ORDERED: DEXTROSE 50% SYRINGE 50 ML IVP PRN ×2 (15:58)
[2022-01-01 16:54] LABS: Appearance,Urine Clear (Clear); Bilirubin,Urine Negative (Negative); Blood,Urine Negative (Negative); Color,Urine Light Yellow; Glucose,Urine (UA) Negative (Negative); Ketones,Urine Negative (Negative); Leukocyte Esterase,Urine Negative (Negative); Nitrite,Urine Negative (Negative); PH, Urine 5.5 (5.0-8.0); Protein,Urine Negative (Negative); Urobilinogen,Urine <2.0 mg/dL (<2.0)
[2022-01-01] MEDS: SODIUM CHLORIDE 0.9% 1,000 ML IV SCH ×2 (17:16→20:20)
[2022-01-01] MEDS: HEPARIN SODIUM,PORCINE/PF 5,000 UNIT/0.5 ML SYRINGE SQ SCH (19:06)
[2022-01-01] MEDS: ATORVASTATIN 40 MG TAB PO SCH (19:07)
[2022-01-01] MEDS: FAMOTIDINE 20 MG/2 ML VIAL IV SCH (20:19)
[2022-01-01] MEDS: metFORMIN 500 MG TAB PO SCH (20:19)
[2022-01-01 20:50] LABS: Glucose,Whole Blood 242 mg/dL (70-110)
[2022-01-02] MEDS: HEPARIN SODIUM,PORCINE/PF 5,000 UNIT/0.5 ML SYRINGE SQ SCH ×4 (04:01→23:47)
[2022-01-02 06:25] LABS: Glucose,Whole Blood 175 mg/dL (70-110)
[2022-01-02] MEDS: INSULIN ASPART (NovoLOG) 100 UNIT/ML VIAL SQ SCH ×4 (07:12→20:59)
--- NOTE | 2022-01-02 08:38 | P.HPIM ---
History of Present Illness This is a pleasant 66 years old male with past medical history of diabetes mellitus, hypertension, hyperlipidemia, Patient follows up with a neurologist Dr. hubert gotti for TIAs and a tremor. Patient says he came because of episodes of slurred speech and weakness in his both upper extremities which happened one day earlier and he wants to see his PCP Dr. Sharif who referred him to the emergency room. Patient states he feels better now but he was dropping his shaving razor yesterday. He is still thinks they are weak somewhat but they are symmetrical and improving. He says that his slurred speech improved but he had also some difficulty swallowing as well which is resolved now. He says that this happens and episodes and acceptance 2-3 times a year over the last 6 years. Also he has episodes of twitching of the jaw and cheek He denies any dizziness or other weakness or numbness. No blurred vision. No slurred speech currently. No chest pain or dyspnea or diarrhea or vomiting. No dysuria or urgency. No fever. He denies smoking, alcohol or illicit tracts Vital signs stable, heart rate and middle 50s. Patient has had unremarkable labs including CBC, INR, BMP, liver enzymes and troponin. Glucose ranging 176/242. Urine Analysis is negative. TSH is normal 1.2 CT of the brain, no acute process. CTA of the head: No evidence of dissection of the cervical internal carotid arteries or vertebral arteries or any evidence of significant stenosis at the carotid bifurcations. No evidence of high-grade stenosis or aneurysm. Chest x-ray: No acute process. Review of Systems Review of systems CONSTITUTIONAL: No fever, no malaise, no fatigue. HEENT: No recent visual problems or hearing problems. Denied any sore throat. CARDIOVASCULAR: No orthopnea, PND, no palpitations, no syncope. PULMONARY: No shortness of breath, no cough, no hemoptysis. GASTROINTESTINAL: No diarrhea, no nausea, no vomiting, no abdominal pain. Normoactive bowel sounds. NEUROLOGICAL: No dizziness, no numbness. HEMATOLOGICAL: Denies any bleeding or petechiae. GENITOURINARY: Denies any burning micturition, frequency, or urgency. MUSCULOSKELETAL/RHEUMATOLOGICAL: Denies any joint pain, swelling, or any muscle pain. ENDOCRINE: Denies any polyuria or polydipsia. 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 History of Any Multi-Drug Resistant Organisms: MRSA Date of last positivie culture/infection: 2013 MDRO Source:: LEFT FOOT Past Surgical History: Pacemaker Additional Past Surgical History / Comment(s): LEFT FOOT reconstruction, colonoscopy, cataract removed Past Anesthesia/Blood Transfusion Reactions: No Reported Reaction Type of Cardiac Device: Permanent Pacemaker Device Placement Date:: 2018 Smoking Status: Never smoker - Past Family History Father Family Medical History: Hypertension, Myocardial Infarction ([place]) Mother Family Medical History: Cancer, Myocardial Infarction ([place]) Additional Family Medical History / Comment(s): Breast CA, MRSA Sister(s) Additional Family Medical History / Comment(s): heart valve transplant Medications and Allergies Home Medications Medication Instructions Recorded Confirmed Type Citalopram Hydrobromide [CeleXA] 10 mg PO DAILY 05/02/15 01/01/22 History Clopidogrel [Plavix] 75 mg PO DAILY #30 tab 05/07/15 01/01/22 Rx Cyanocobalamin (Vitamin B-12) 1,000 mcg PO DAILY 06/01/18 01/01/22 History [Vitamin B-12] Atorvastatin Calcium [Lipitor] 40 mg PO DAILY 02/21/19 01/01/22 History Insulin Glargine,Hum.rec.anlog 54 unit SQ HS 02/21/19 01/01/22 History [Toujeo Solostar] metFORMIN HCL [Glucophage] 1,000 mg PO BID 02/21/19 01/01/22 History Cholecalciferol [Vitamin D3 (25 25 mcg PO DAILY 01/01/22 01/01/22 History Mcg = 1000 Iu)] Insulin Aspart [NovoLOG Flexpen] 30 units SQ AC-TID 01/01/22 01/01/22 History Insulin Aspart [NovoLOG Flexpen] See Protocol SQ AC-TID 01/01/22 01/01/22 History Metoprolol Tartrate [Lopressor] 50 mg PO DAILY 01/01/22 01/01/22 History Pioglitazone [Actos] 15 mg PO DAILY 01/01/22 01/01/22 History lisinopriL 40 mg PO DAILY 01/01/22 01/01/22 History Allergies Allergy/AdvReac Type Severity Reaction Status Date / Time cefepime Allergy Rash/Hives Verified 01/01/22 10:02 POLYGLYCOL Allergy Rash/Hives Uncoded 01/01/22 10:02 Physical Exam Vitals: Vital Signs Temp Pulse Pulse Resp BP BP Pulse Ox 01/02/22 04:00 97.9 F 51 L 16 115/59 93 L 01/02/22 02:00 48 L 17 01/02/22 00:00 96.9 F L 48 L 16 114/58 96 01/01/22 20:00 98.0 F 55 L 17 142/82 97 01/01/22 18:44 98.3 F 59 L 20 151/81 99 01/01/22 17:01 98.2 F 58 L 16 132/66 94 L 01/01/22 11:00 51 L 18 145/82 95 01/01/22 10:50 50 L 16 145/82 96 01/01/22 10:30 52 L 18 162/82 01/01/22 10:20 54 L 20 162/82 01/01/22 10:12 56 L 18 141/73 98 01/01/22 09:59 98.1 F 57 L 16 153/74 97 Intake and Output 01/01/22 01/02/22 01/02/22 22:59 06:59 14:59 Intake Total 1740 358 Output Total 100 Balance 1640 358 Intake: Intake, IV Titration 1200 Amount Sodium Chloride 0.9% 1, 1200 000 ml @ 100 mls/hr IV . Q10H [facility] Rx#:[id number] Oral 540 358 Output: Urine 100 Other: Voiding Method Toilet Toilet Weight 104.326 kg GENERAL: The patient is alert and oriented x3, not in any acute distress. Well developed, well nourished. HEENT: Pupils are round and equally reacting to light. EOMI. No scleral icterus. No conjunctival pallor. Normocephalic, atraumatic. No pharyngeal erythema. No thyromegaly. CARDIOVASCULAR: S1 and S2 present. No murmurs, rubs, or gallops. PULMONARY: Chest is clear to auscultation, no wheezing or crackles. ABDOMEN: Soft, nontender, nondistended, normoactive bowel sounds. No palpable organomegaly. MUSCULOSKELETAL: No joint swelling or deformity. EXTREMITIES: No cyanosis, clubbing, or pedal edema. -NEUROLOGICAL: Gross neurological examination did not reveal any focal deficits. Head tremor. Strength 5/5. Sensation is intact. Cranial nerves are grossly intact SKIN: No rashes. no petechiae. Results CBC & Chem 7: 01/01/22 10:19 01/01/22 10:19 Labs: Abnormal Lab Results - Last 24 Hours (Table) 01/01/22 01/01/22 01/01/22 Range/Units 10:18 10:19 10:19 Glucose 206 H (74-99) mg/dL POC Glucose (mg/dL) 197 H (70-110) mg/dL Hemoglobin A1c 8.4 H (0.0-6.0) % Vitamin B12 (200.0-944.0) pg/mL 01/01/22 01/01/22 01/01/22 Range/Units 10:19 15:45 20:49 Glucose (74-99) mg/dL POC Glucose (mg/dL) 176 H 242 H (70-110) mg/dL Hemoglobin A1c (0.0-6.0) % Vitamin B12 1333.0 H (200.0-944.0) pg/mL 01/02/22 Range/Units 06:23 Glucose (74-99) mg/dL POC Glucose (mg/dL) 175 H (70-110) mg/dL Hemoglobin A1c (0.0-6.0) % Vitamin B12 (200.0-944.0) pg/mL Thrombosis Risk Factor Assmnt - Choose All That Apply Each Risk Factor Represents 2 Points: Age 61-74 years Other congenital or acquired thrombophilia - If yes, enter type in comment: No Thrombosis Risk Factor Assessment Total Risk Factor Score: 2 Thrombosis Risk Factor Assessment Level: Low Risk Assessment and Plan Assessment: Transient episodes of slurred speech and bilateral upper extremity clumsiness. Tremor Diabetes mellitus Hypertension Hyperlipidemia Obesity with BMI of 32.1 Plan: This is a pleasant 66 years old male who presents with possible TIA Continue with the Plavix Neuro check Neurology consult Check hemoglobin A1c Labs and medication were reviewed.. Continue same treatment. Continue with symptomatic treatment. Resume home medication. Monitor lytes and vitals. DVT and GI prophylaxis. Further recommendations as per clinical course of the patient DVT prophylaxis: Subcutaneous heparin GI Prophylaxis: Pepcid PT/OT: Pending Prognosis is guarded
[2022-01-02] MEDS: metFORMIN 500 MG TAB PO SCH ×2 (08:43→20:59)
[2022-01-02] MEDS: FAMOTIDINE 20 MG/2 ML VIAL IV SCH (08:59)
[2022-01-02] MEDS: lisinopriL 20 MG TAB PO SCH (08:59)
[2022-01-02] MEDS: CITALOPRAM HYDROBROMIDE 10 MG TAB PO SCH (08:59)
[2022-01-02] MEDS: CLOPIDOGREL 75 MG TAB PO SCH (08:59)
[2022-01-02 09:00] LABS: Chol/HDL Ratio 3.37 Ratio; LDL Cholesterol,Calculated 50.1 mg/dL (0.0-131.0)
[2022-01-02] MEDS: ATORVASTATIN 40 MG TAB PO SCH (09:00)
[2022-01-02] MEDS: CHOLECALCIFEROL 25 MCG (1000 IU) TABLET PO SCH (09:00)
[2022-01-02] MEDS: CYANOCOBALAMIN 500 MCG TAB PO SCH (09:00)
[2022-01-02] MEDS: METOPROLOL TARTRATE 50 MG TAB PO SCH (09:00)
[2022-01-02] MEDS: PIOGLITAZONE 15 MG TAB PO SCH (09:03)
--- NOTE | 2022-01-02 09:15 | P.CNNES ---
History of Present Illness Consult date: 01/01/22 Requesting physician: Aubrey Guadalupe Reason for Consult: Slurred speech, right hand weakness, TIA History of Present Illness: Patient is a 66-year-old male with history of diabetes, hypertension, essential tremors came to the hospital today at 9:56 AM. for recurrent spells, patient concerning for possible TIA. Patient states that in the last 6 years, he has been having 2 or 3 episodes a year of stereotypical spells, and each of these spells last for 2-3 days and then symptoms goes away. The symptoms starts with slurred speech and then his "hands and arms don't work well" sometimes involves the one arm and sometimes both. His face quivers both sides and then he notices difficulty swallowing. He describes it as "sometimes can't get to swallow", or comes out off lips or hard time swallowing. This episode started yesterday at noon, and this time he did not have any facial quivering. He states that his s peech was worse today, but after taking a nap it is better now. He states the last spell was in August 2021. Patient says that he has been seen by Dr. Fernandez in the past and had undergone MRI and EEG as well as CANDIDA scan. Parkinson's disease was ruled out. He does have essential tremors with no family history of tremors. Vital signs arrival blood pressure 153/74 pulse rate 57 temperature 98.1. Blood test shows normal CBC, PT/PTT, normal CMP. Blood glucose 206. Troponin negative. ESS normal UA negative. CT head showed no acute intracranial process. No significant change from her prior exam. I personally reviewed computed tomography scan of the head and agree with the findings. Polyp in the right maxillary sinus. CTA negative. EKG showed electronic atrial pacemaker. Left axis deviation. Chest x-ray normal. Patient's last hemoglobin A1c 7.4 on 01/31/2020. Patient has diabetes as far as 2015 minutes was 10.1. Patient has history of diabetes for last 10 years, which he claims is controlled. He has hypertension. Never smoked. He seldom drinks alcohol. Does not use any marijuana. Patient's home medications include Celexa 10 mg, Plavix 75 mg, B12, metformin, insulin, Lipitor 40 mg, Actos, lisinopril 40 mg, vitamin D and metoprolol. Review of Systems Positive for tremors. Denies any focal weakness. No facial droop. No chest pain, abdominal pain nausea or vomiting. No fever or chills. All review of systems negative except as mentioned in HPI. 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 History of Any Multi-Drug Resistant Organisms: MRSA Date of last positivie culture/infection: 2013 MDRO Source:: LEFT FOOT Past Surgical History: Pacemaker Additional Past Surgical History / Comment(s): LEFT FOOT reconstruction, colonoscopy Past Anesthesia/Blood Transfusion Reactions: No Reported Reaction Past Psychological History: Depression Smoking Status: Never smoker Past Alcohol Use History: None Reported Past Drug Use History: None Reported - Past Family History Father Family Medical History: Hypertension, Myocardial Infarction ([place]) Mother Family Medical History: Cancer, Myocardial Infarction ([place]) Additional Family Medical History / Comment(s): Breast CA, MRSA Sister(s) Additional Family Medical History / Comment(s): heart valve transplant Medications and Allergies Home Medications Medication Instructions Recorded Confirmed Type Citalopram Hydrobromide [CeleXA] 10 mg PO DAILY 05/02/15 01/01/22 History Clopidogrel [Plavix] 75 mg PO DAILY #30 tab 05/07/15 01/01/22 Rx Cyanocobalamin (Vitamin B-12) 1,000 mcg PO DAILY 06/01/18 01/01/22 History [Vitamin B-12] Atorvastatin Calcium [Lipitor] 40 mg PO DAILY 02/21/19 01/01/22 History Insulin Glargine,Hum.rec.anlog 54 unit SQ HS 02/21/19 01/01/22 History [Toujeo Solostar] metFORMIN HCL [Glucophage] 1,000 mg PO BID 02/21/19 01/01/22 History Cholecalciferol [Vitamin D3 (25 25 mcg PO DAILY 01/01/22 01/01/22 History Mcg = 1000 Iu)] Insulin Aspart [NovoLOG Flexpen] 30 units SQ AC-TID 01/01/22 01/01/22 History Insulin Aspart [NovoLOG Flexpen] See Protocol SQ AC-TID 01/01/22 01/01/22 History Metoprolol Tartrate [Lopressor] 50 mg PO DAILY 01/01/22 01/01/22 History Pioglitazone [Actos] 15 mg PO DAILY 01/01/22 01/01/22 History lisinopriL 40 mg PO DAILY 01/01/22 01/01/22 History Allergies Allergy/AdvReac Type Severity Reaction Status Date / Time cefepime Allergy Rash/Hives Verified 01/01/22 10:02 POLYGLYCOL Allergy Rash/Hives Uncoded 01/01/22 10:02 Physical Examination - Vital Signs Vital Signs: Vital Signs Temp Pulse Resp BP Pulse Ox 01/01/22 17:01 98.2 F 58 L 16 132/66 94 L 01/01/22 11:00 51 L 18 145/82 95 01/01/22 10:50 50 L 16 145/82 96 01/01/22 10:30 52 L 18 162/82 01/01/22 10:20 54 L 20 162/82 01/01/22 10:12 56 L 18 141/73 98 01/01/22 09:59 98.1 F 57 L 16 153/74 97 Intake and Output 01/01/22 01/01/22 01/01/22 06:59 14:59 22:59 Other: Weight 104.326 kg Patient is an elderly male, in no acute distress. Patient is alert awake oriented to time place and person. He states it is January and the year is 2021. He knows that he is in [facility] and knows name of the current president. Speech and language functions are normal. Patient can name and repeat very well. Attention, concentration and fund of knowledge is adequate. On cranial examination, pupils are equal, round and reacting to light, visual garcia are full on confrontation, with no neglect on double simultaneous stimulation. His extraocular muscles are intact with no nystagmus. Face is symmetric, tongue protrudes to the midline. Palatal elevation and sensation normal, hearing and shoulder shrug normal, facial sensation normal. Patient has had tremors, somewhat in a "no-no" direction. On muscle strength testing, there is no pronator drift and the strength is normal in arms and legs distally and proximally. Deep tendon reflexes are diminished and plantars downgoing bilaterally. Sensory to touch is equal with no neglect. Cerebellar function showed no ataxia for [id number] testing. No dysdiadochokinesia. Tone and bulk of muscles normal. Patient has arrhythmic, myoclonic type tremor of outstretched hands. No tremors for [id number] testing. No tremors at rest. Gait deferred. On general examination, there is no carotid bruit or murmur, S1-S2 audible. Abdomen is soft nontender. No organomegaly, bowel sounds present. Chest is clear. Peripheral pulses are present. No edema. Results - Laboratory Findings CBC and BMP: 01/01/22 10:19 01/01/22 10:19 Abnormal Lab Findings: Abnormal Labs 01/01/22 01/01/22 01/01/22 10:18 10:19 15:45 Glucose 206 H POC Glucose (mg/dL) 197 H 176 H Assessment and Plan Assessment: * Recurrent episodes of dysarthria, subjective difficulty with motor functions of hands and difficulty swallowing. Symptoms are not typical of TIA. Patient does have significant essential tremor, which may be contributing. * Diabetes * Hypertension Plan: * Continue Plavix * EEG rule out epileptiform activity * MRI brain, rule out CVA. * Fasting lipid panel, hemoglobin A1c * CTA of head and neck showed no evidence of dissection of the cervical internal carotid arteries or vertebral arteries or any evidence of significant stenosis of the carotid bifurcations. No evidence of high-grade stenosis or intracranial aneurysm. * Neurology will follow. Thank you for the consult.
[2022-01-02 11:52] LABS: Glucose,Whole Blood 235 mg/dL (70-110)
[2022-01-02] MEDS: SODIUM CHLORIDE 0.9% 1,000 ML IV SCH (12:38)
--- NOTE | 2022-01-02 13:26 | P.PN ---
Subjective Progress Note Date: 01/02/22 Patient was seen for a follow-up. Patient's was also present today. She concurred that patient has been having these episodes 3-4 times a year for last 6-7 years. They last between 1-2 days. She has noticed that these episodes occurs when he has been sleep deprived. Patient states that for the last 3 days prior to this episode, he was sleeping much less, as he was helping out a friend with some house chores. He usually sleeps 10-12 hours per day. If he does not sleep well for a few days and this event happens. She concurred that starts with the slurred speech, and then he has difficulty swallowing and then weakness of the arms. Patient states that when I saw him yesterday he has taken a nap, therefore he was feeling much better. Today he feels almost back to baseline. Objective - Vital Signs Vital signs: Vital Signs Temp 98.1 F 01/02/22 11:40 Pulse 57 L 01/02/22 11:40 Resp 16 01/02/22 11:40 BP 162/73 01/02/22 11:40 Pulse Ox 97 01/02/22 11:40 FiO2 Intake & Output 01/01/22 01/02/22 01/02/22 18:59 06:59 18:59 Intake Total 1740 358 Output Total 100 Balance 1640 358 Weight 104.326 kg Intake: Intake, IV Titration 1200 Amount Sodium Chloride 0.9% 1, 1200 000 ml @ 100 mls/hr IV . Q10H [facility] Rx#:[id number] Oral 540 358 Output: Urine 100 Other: Voiding Method Toilet Toilet - Exam Mental status, speech and language functions are normal. No tremors of outstretched hands. No ataxia. Tone is normal. No bradykinesia. - Labs CBC & Chem 7: 01/01/22 10:19 01/01/22 10:19 Labs: Abnormal Lab Results - Last 24 Hours (Table) 01/01/22 01/01/22 01/01/22 Range/Units 10:19 10:19 15:45 POC Glucose (mg/dL) 176 H (70-110) mg/dL Hemoglobin A1c 8.4 H (0.0-6.0) % HDL Cholesterol (40.00-60.00) mg/dL Vitamin B12 1333.0 H (200.0-944.0) pg/mL 01/01/22 01/02/22 01/02/22 Range/Units 20:49 05:10 06:23 POC Glucose (mg/dL) 242 H 175 H (70-110) mg/dL Hemoglobin A1c (0.0-6.0) % HDL Cholesterol 30.30 L (40.00-60.00) mg/dL Vitamin B12 (200.0-944.0) pg/mL 01/02/22 Range/Units 11:37 POC Glucose (mg/dL) 235 H (70-110) mg/dL Hemoglobin A1c (0.0-6.0) % HDL Cholesterol (40.00-60.00) mg/dL Vitamin B12 (200.0-944.0) pg/mL Assessment and Plan Assessment: * Recurrent episodes of dysarthria, subjective difficulty with motor functions of hands and difficulty swallowing. Symptoms are not typical of TIA. Patient and his believes that these episodes are triggered from lack of sleep. * Patient does have significant essential tremor, which may be contributing. * Diabetes * Hypertension Plan: * Avoid sleep deprivation, as he has noticed that these spells are triggered with lack of sleep. * Continue Plavix * EEG was performed today, which is normal. No epileptiform activity was seen. * MRI brain cannot be performed as patient has a pacemaker. * Fasting lipid panel with cholesterol 102, LDL 50, HDL 30 and triglycerides 108. Continue Lipitor 40 mg daily. * Hemoglobin A1c 8.4. Recommend optimize control of diabetes to target A1c <7.0 * B12 1333, folate > 20.0 and TSH normal 1.26. UA negative. * CTA of head and neck showed no evidence of dissection of the cervical internal carotid arteries or vertebral arteries or any evidence of significant stenosis of the carotid bifurcations. No evidence of high-grade stenosis or intracranial aneurysm. * Telemetric monitoring showing sinus rhythm with sinus bradycardia. No other arrhythmia. * Neurologically clear for discharge.
--- NOTE | 2022-01-02 13:51 | EEG ---
ELECTROENCEPHALOGRAM REPORT DATE OF SERVICE: 01/02/2022 PREAMBLE: This is a 66-year-old male with recurrent spells. This study is performed to rule out any epileptiform activity. EEG FINDINGS: This is a 21-channel digital EEG recorded with video component, utilizing 10/20 international system with referential and bipolar montages. Background consists of well developed, well regulated, moderate voltage activity in 9 hertz alpha. Background is posterior-dominant and reactive to eye opening and closing. Photic driving was seen with some flash frequencies. Different stages of sleep were not seen. No focal or generalized epileptiform activity was seen. EKG channel showed no arrhythmia. IMPRESSION: This is a normal awake EEG. No focal, lateralized or epileptiform activity was seen. MMODL / MERYN: [id number] /
[2022-01-02 16:33] LABS: Glucose,Whole Blood 250 mg/dL (70-110)
[2022-01-02 20:35] LABS: Glucose,Whole Blood 190 mg/dL (70-110)
[2022-01-02] MEDS: FAMOTIDINE 20 MG TAB PO SCH (20:59)
[2022-01-02] MEDS ORDERED: INSULIN DETEMIR (LEVEMIR) 100 UNIT/ML SYR SQ SCH (21:00)
[2022-01-03] MEDS: SODIUM CHLORIDE 0.9% 1,000 ML IV SCH (05:22)
[2022-01-03 06:06] LABS: Glucose,Whole Blood 166 mg/dL (70-110)
[2022-01-03] MEDS: INSULIN ASPART (NovoLOG) 100 UNIT/ML VIAL SQ SCH (06:26)
[2022-01-03] MEDS: ATORVASTATIN 40 MG TAB PO SCH (08:06)
[2022-01-03] MEDS: CYANOCOBALAMIN 500 MCG TAB PO SCH (08:06)
[2022-01-03] MEDS: HEPARIN SODIUM,PORCINE/PF 5,000 UNIT/0.5 ML SYRINGE SQ SCH (08:06)
[2022-01-03] MEDS: CHOLECALCIFEROL 25 MCG (1000 IU) TABLET PO SCH (08:06)
[2022-01-03] MEDS: CLOPIDOGREL 75 MG TAB PO SCH (08:07)
[2022-01-03] MEDS: FAMOTIDINE 20 MG TAB PO SCH (08:07)
[2022-01-03] MEDS: METOPROLOL TARTRATE 50 MG TAB PO SCH (08:07)
[2022-01-03] MEDS: lisinopriL 20 MG TAB PO SCH (08:07)
[2022-01-03] MEDS: CITALOPRAM HYDROBROMIDE 10 MG TAB PO SCH (08:07)
[2022-01-03] MEDS: metFORMIN 500 MG TAB PO SCH (08:09)
[2022-01-03] MEDS: PIOGLITAZONE 15 MG TAB PO SCH (08:12)
[2022-01-03 08:18] VITALS: BP 168/77; PULSE 70; RESP 16; TEMP 97.7
--- NOTE | 2022-01-03 22:41 | P.DS ---
Providers Date of admission: 01/01/22 14:48 Attending physician: Russel Ayala MD Consults: 01/01/22 14:38 Consult Physician Urgent Consulting Provider: Candis Velazquez Consult Reason/Comments: slurred speech, R hand weakness, TIA Do you want consulting provider notified?: Yes Primary care physician: Sean Sharif Hospital Course: Diagnoses -Transient episodes of slurred speech and bilateral upper extremity clumsiness. Currently Resolved. Seizure ruled out. Unlikely TIA as it is symmetrical and bilateral. Patient will need follow-up as an outpatient --Diabetes mellitus -Hypertension -Hyperlipidemia -Obesity with BMI of 32.1 Hospital course This is a pleasant 66 years old male with past medical history of diabetes mellitus, hypertension, hyperlipidemia, Patient follows up with a neurologist Dr. hubert gotti for TIAs and a tremor. Patient says he came because of episodes of slurred speech and weakness in his both upper extremities which happened one day earlier and he wants to see his PCP Dr. Sharif who referred him to the emergency room. Patient states he feels better now but he was dropping his shaving razor yesterday. He is still thinks they are weak somewhat but they are symmetrical and improving. He says that his slurred speech improved but he had also some difficulty swallowing as well which is resolved now. He says that this happens and episodes and acceptance 2-3 t imes a year over the last 6 years. Also he has episodes of twitching of the jaw and cheek Patient has been evaluated by neurologist. Workup was unremarkable, TSH was normal. Vitamin B12 and folate checked and they were not deficient. Hemoglobin A1c 8.4 and patient was referred to [facility] Dr. Mcpherson as an outpatient patient agrees as he follows with him usually. Also EEG was negative for epileptiform discharge. Patient back to his baseline. He denies any headache or weakness or numbness. No blurred vision or slurred speech. No dizziness or other neurological symptoms. Patient was states for discharge by neurologist. Problems and management plan were discussed with the patient and he verbalized understanding and acceptance Patient was found stable and can be discharged home however he needs follow-up as an outpatient. Patient was instructed to follow up with PCP Dr. Sharif within one week and patient agrees Patient was instructed to follow up with his neurologist Dr. Espitia in one to two weeks and he agrees Physical exam Gen: patient is a AAOx3, no distress CVS: S1-S2, RRR, no murmur Lungs: B/L CTA, no wheezing Abdomen: soft, no distention, no tenderness, positive bowel sounds Extremity: no leg edema or induration Time spent more than 35 minutes Patient Condition at Discharge: Fair Plan - Discharge Summary Discharge Rx Participant: No New Discharge Prescriptions: Continue Citalopram Hydrobromide [CeleXA] 10 mg PO DAILY Clopidogrel [Plavix] 75 mg PO DAILY #30 tab Cyanocobalamin (Vitamin B-12) [Vitamin B-12] 1,000 mcg PO DAILY Atorvastatin Calcium [Lipitor] 40 mg PO DAILY metFORMIN HCL [Glucophage] 1,000 mg PO BID Insulin Glargine,Hum.rec.anlog [Jermaineo Sollissette] 54 unit SQ HS Pioglitazone [Actos] 15 mg PO DAILY Insulin Aspart [NovoLOG Flexpen] See Protocol SQ AC-TID Insulin Aspart [NovoLOG Flexpen] 30 units SQ AC-TID lisinopriL 40 mg PO DAILY Cholecalciferol [Vitamin D3 (25 Mcg = 1000 Iu)] 25 mcg PO DAILY Metoprolol Tartrate [Lopressor] 50 mg PO DAILY Discharge Medication List Citalopram Hydrobromide [CeleXA] 10 mg PO DAILY 05/02/15 [History] Clopidogrel [Plavix] 75 mg PO DAILY #30 tab 05/07/15 [Rx] Cyanocobalamin (Vitamin B-12) [Vitamin B-12] 1,000 mcg PO DAILY 06/01/18 [History] Atorvastatin Calcium [Lipitor] 40 mg PO DAILY 02/21/19 [History] Insulin Glargine,Hum.rec.anlog [Tousolitarioo Solostar] 54 unit SQ HS 02/21/19 [History] metFORMIN HCL [Glucophage] 1,000 mg PO BID 02/21/19 [History] Cholecalciferol [Vitamin D3 (25 Mcg = 1000 Iu)] 25 mcg PO DAILY 01/01/22 [History] Insulin Aspart [NovoLOG Flexpen] 30 units SQ AC-TID 01/01/22 [History] Insulin Aspart [NovoLOG Flexpen] See Protocol SQ AC-TID 01/01/22 [History] Metoprolol Tartrate [Lopressor] 50 mg PO DAILY 01/01/22 [History] Pioglitazone [Actos] 15 mg PO DAILY 01/01/22 [History] lisinopriL 40 mg PO DAILY 01/01/22 [History] Follow up Appointment(s)/Referral(s): Sean Sharif MD [Primary Care Provider] - 1-2 days (January 09, 1:20) Darren Pfeiffer MD [REFERRING] - As Needed ([facility] for your diabetes ) Rayna Espitia MD [REFERRING] - 1 Week (they will give you a call with an appt. time) Patient Instructions/Handouts: Transient Ischemic Attack (DC) Activity/Diet/Wound Care/Special Instructions: heart healthy diet , low carbohydrate diet 1800 k erica per day activity limited until follow up Discharge Disposition: HOME SELF-CARE
== END 2022-01-03 10:48 | disposition home or self-care (01) ==
LOC: EC 09:56 → 3SCARD 14:48 → INTOOBSV 14:48 → 3SCARD 16:07 → UNDODISIN 01-03 10:48
PROVIDERS: ADMIT Internal Medicine; ATTEND Internal Medicine
DX: R47.1 Dysarthria and anarthria (principal); R13.10 Dysphagia, unspecified; Z72.820 Sleep deprivation; G20 Parkinson's disease; E11.9 Type 2 diabetes mellitus without complications; I10 Essential (primary) hypertension; G25.0 Essential tremor; F32.A Depression, unspecified; E66.9 Obesity, unspecified; Z68.32 Body mass index [BMI] 32.0-32.9, adult; E78.5 Hyperlipidemia, unspecified; Z79.02 Long term (current) use of antithrombotics/antiplatelets; Z79.84 Long term (current) use of oral hypoglycemic drugs; Z79.4 Long term (current) use of insulin; Z79.899 Other long term (current) drug therapy; Z88.8 Allergy status to other drugs, medicaments and biological substances; Z86.73 Personal history of transient ischemic attack (TIA), and cerebral infarction without residual deficits; Z85.828 Personal history of other malignant neoplasm of skin; Z95.0 Presence of cardiac pacemaker; Z98.49 Cataract extraction status, unspecified eye; Z86.14 Personal history of Methicillin resistant Staphylococcus aureus infection; Z98.890 Other specified postprocedural states; Z82.49 Family history of ischemic heart disease and other diseases of the circulatory system; Z80.3 Family history of malignant neoplasm of breast
CPT/HCPCS: 96376; 96372 ×2; 96374; 99285; 36415; 95816; 93005; 97161; 92610; 92523; 80061; 80053; 84443; 82607; 82746; 84484; 85025; 85610; 85730; 81003; 83036; 71046; 70496; 70450; 70498; G0378 ×3; Q9967; J1644 ×2; 96360

== ENCOUNTER → 2024-10-10 | Outpatient (CLI) | payer MEDICARE ==
[2024-10-10 13:13] LABS: African American GFR (CKD) >90 (>60 ml/min/1.73 sqM); Blood Urea Nitrogen 17 mg/dL (9-20); Non-African American GFR(CKD) 79 (>60 ml/min/1.73 sqM)
--- NOTE | 2024-10-11 09:51 | CT ---
EXAMINATION TYPE: CT chest abdomen w con DATE OF EXAM: 10/10/2024 1:59 PM COMPARISON: r CLINICAL INDICATION: Male, 69 years old with history of K21.9, R05.3, cough, abdominal pain TECHNIQUE: Axial images were obtained at 5 mm thick sections. Reconstructed images are reviewed on [facility] computer in the coronal plane. Contrast used:100ml mL of Isovue 300 with IV Contrast, (none if empty) Oral contrast used: with Oral Contrast (none if empty) CT DLP: 1490 mGycm, Automated exposure control for dose reduction was used. FINDINGS: Portion of the thyroid visualized is normal. No suspicious lung nodules or focal infiltrates are present. No enlarged mediastinal or hilar adenopathy is evident. The ascending aorta diameter at the level o f the main pulmonary artery is 3.3 cm. The main pulmonary artery diameter at the bifurcation is 2.7 cm. Mild coronary artery calcifications present. IMPRESSION: 1. No acute pulmonary process CT chest. EXAMINATION TYPE: CT chest abdomen w con DATE OF EXAM: 10/10/2024 1:59 PM COMPARISON: None. CLINICAL INDICATION: Male, 69 years old with history of K21.9, R05.3, cough, abdominal pain TECHNIQUE: Axial images were obtained from above the diaphragm to the pubic rami in the axial plane a t 5 mm thick sections. Reconstructed images are reviewed on the computer in the coronal plane. CONTRAST: 100ml mL of Isovue 300. Study performed with Oral Contrast DLP: 1490 mGycm, Automated exposure control for dose reduction was used. FINDINGS: CT ABDOMEN: Liver: Mild diffuse fatty infiltration of the liver is present. Spleen: Normal Pancreas: Mildly atrophic. Punctate calcifications in the proximal tail of the pancreas Adrenal glands: The adrenal glands are normal. Gallbladder: Normal Kidneys: No masses are evident. No hydronephrosis is present. Couple of exophytic cysts are on the right kidney measuring 2.2 cm and 0.9 cm mid and inferior pole respectively. Cortical renal cyst on t he lateral mid right kidney measuring 1.8 cm. There is a medial mid left renal cortical cyst measuri ng 1.3 cm. Delayed images were obtained through the kidneys, which remain unremarkable. Aorta: Normal Inferior vena cava: Normal. Loops of bowel within the abdomen and upper pelvis are normal. There are loops of bowel which are incompletely distended or lack oral contrast limiting their evaluation. Appendix: Small portion partially visualized is Normal as visualized. Degenerative disc changes present in the lower lumbar spine. Facet degenerative changes are present. Endplate spurring is present. Spinal canal narrowing and foraminal stenosis have be present. Follow-u p MRI lumbar spine can be performed if there are clinical indications. IMPRESSION: 1. No acute CT abdomen abnormality. 2. Cortical renal cysts. 3. Degenerative changes within the lumbar spine. [facility], , 10/11/2024 9:48 AM
== END | disposition home or self-care (01) ==
LOC: RADCTMAIN 12:39
PROVIDERS: ATTEND Internal Medicine
DX: K21.9 Gastro-esophageal reflux disease without esophagitis (principal); N28.1 Cyst of kidney, acquired; M47.816 Spondylosis without myelopathy or radiculopathy, lumbar region
CPT/HCPCS: 82565; 84520; 71260; 74160; 36415; Q9967